=== PATIENT | male | born 1980 | race Caucasian/White ===

== ENCOUNTER 2019-05-19 11:49 | Emergency (ER) | payer SELFPAY ==
[2019-05-19 11:51] VITALS: BP 142/82; PULSE 107; RESP 16; TEMP 36.7; O2SAT 100
--- NOTE | 2019-05-19 12:56 | ED.EAR ---
HPI - Ear Problem General Chief complaint: Ear Stated complaint: ear ache Time Seen by Provider: 05/19/19 12:14 Source: patient Mode of arrival: ambulatory Limitations: no limitations History of Present Illness HPI Narrative: This is a 38 year old male that presents to the ER for bilateral ear discomfort. Reports he feels like he has fluid in his ears. Reports his right ear was hurting a couple days ago, but has no longer had any pain. Denies any drainage from the ears or fever. Related Data Allergies Allergy/AdvReac Type Severity Reaction Status Date / Time No Known Allergies Allergy Verified 05/19/19 11:56 Review of Systems Review of Systems: Narrative: CONSTITUTIONAL: Denies fever ENT: Reports otalgia. Denies rhinorrhea, congestion, sore throat RESPIRATORY: Denies cough or dyspnea. All systems reviewed & are unremarkable except as noted in HPI and below PMFSH Past Medical History Medical History (Updated 05/19/19 @ 13:02 by Kathleen Joyce PA-C) No active medical problems Social History Social History (Updated 05/19/19 @ 12:58 by Kathleen Joyce PA-C) Substance use: never Gender identity (if verbalized by the patient): Male Exam Narrative: Exam Narrative: GENERAL: Well-appearing, well-nourished, and in no acute distress. HEAD: Normocephalic, atraumatic. EYES: EOMI. ENT: Mucous membranes moist. Bilateral external auditory canals are normal. Bilateral TMs pearly portillo non-bulging NECK: Supple. No adenopathy or masses. EXTREMITIES: Normal range of motion. No edema. SKIN: Warm, dry, no rash. NEURO: No focal deficits. Alert and oriented x3. PSYCH: Normal mood and affect Course Vital Signs Vital signs: Vital Signs Temperature 98.0 F 05/19/19 11:51 Pulse Rate 107 H 05/19/19 11:51 Respiratory Rate 16 05/19/19 11:51 Blood Pressure 142/82 H 05/19/19 11:51 Pulse Oximetry 100 05/19/19 11:51 Temperature 98.0 F 05/19/19 11:51 Pulse Rate 107 H 05/19/19 11:51 Respiratory Rate 16 05/19/19 11:51 Blood Pressure 142/82 H 05/19/19 11:51 Pulse Oximetry 100 05/19/19 11:51 Medical Decision Making MDM Narrative Medical decision making narrative: Patient presents the emergency department for bilateral ear discomfort. He is afebrile and nontoxic-appearing. Bilateral external auditory canals are normal. TMs are without erythema or swelling and having normal light reflexes. Patient was updated on case findings. He is to follow-up with primary care doctor. He was given warnings to return to the ER Vital Signs Vital Signs: Vital Signs Temperature 98.0 F 05/19/19 11:51 Pulse Rate 107 H 05/19/19 11:51 Respiratory Rate 16 05/19/19 11:51 Blood Pressure 142/82 H 05/19/19 11:51 Pulse Oximetry 100 05/19/19 11:51 Temperature 98.0 F 05/19/19 11:51 Pulse Rate 107 H 05/19/19 11:51 Respiratory Rate 16 05/19/19 11:51 Blood Pressure 142/82 H 05/19/19 11:51 Pulse Oximetry 100 05/19/19 11:51 Critical Care Time Critical Care Time Critical Care Time: No Discharge Plan Discharge Clinical Impression: Ear congestion Qualifiers: Laterality: bilateral Qualified Code(s): H93.8X3 - Other specified disorders of ear, bilateral Patient Disposition: Home, Self-Care Condition: Stable Instructions: Earache (ED) Additional Instructions: Return to the emergency department if you experience fever, ear pain, redness and swelling of the ear, drainage from the ear, or any other symptoms that are concerning to you Take a Zyrtec daily. Nasal rinses daily. Tylenol or ibuprofen as needed for pain Follow-up with primary care doctor Follow-up/Referrals: PHYSICIAN,ARM MAKER [Primary Care Provider] - Darrin Smith MD [Physician] - 3 Days
[2019-05-19 13:23] VITALS: BP 132/80; PULSE 80; RESP 20; TEMP 36.7; O2SAT 99
== END 2019-05-19 13:24 | disposition home or self-care (01) ==
PROVIDERS: Emergency Provider Emergency Medicine
DX: H93.8X3 Other specified disorders of ear, bilateral (principal)
CPT/HCPCS: 99281

== ENCOUNTER 2019-10-16 19:18 | Emergency (ER) | payer SELFPAY ==
--- NOTE | ~2019-10-16 | XR_ITS ---
XR elbow RT min 3V DATE: 10/16/2019 21:36 INDICATION: Generalized right elbow pain, radiating to fingers. No injury. TECHNIQUE: 4 views COMPARISON: None FINDINGS: No fracture or dislocation or joint effusion. No periosteal reaction or bone destruction. IMPRESSION: Negative Reviewed, dictated and finalized at location A. IMPRESSION: Negative
[2019-10-16 19:26] VITALS: BP 125/79; PULSE 114; RESP 18; TEMP 36.1; O2SAT 99
--- NOTE | 2019-10-16 21:30 | ED.UPPEXIN ---
HPI - Extremity Injury (Upper) General Chief Complaint: Extremity Injury, Upper Stated Complaint: worsening elbow pain,seen [facility] ago Time Seen by Provider: 10/16/19 21:24 Source: patient Mode of arrival: ambulatory Limitations: no limitations History of Present Illness HPI narrative: This patient is a 38 year old male right hand dominant who presents for evaluation of right elbow pain for 2 week. HE states 2 weeks he was working when he developed pain to his right elbow. He reports he felt a pop so he went to [facility] for evaluation . He was diagnosed with tennis elbow and he was discharged with naproxen. He has not taken anything for pain in 2 days, and he states the naproxen didn't help his pain. His pain is worse with stretching his arm. complaint: injury to: right and elbow Onset (ago): week(s) (2) Handedness: right Place: work Related Data Home Medications Medication Instructions Recorded Confirmed No Home Medications 10/16/19 10/16/19 Allergies Allergy/AdvReac Type Severity Reaction Status Date / Time No Known Allergies Allergy Verified 10/16/19 21:29 Review of Systems Review of Systems: All systems reviewed & are unremarkable except as noted in HPI and below Constitutional: Constitutional: Denies chills and Denies fever(s) Musculoskeletal: Musculoskeletal: Reports arthralgias Neurologic: Denies focal weakness PMFSH Past Medical History Medical History (Updated 10/17/19 @ 06:26 by Sangeetha Ramos MD) No active medical problems Surgical History Surgical History (Updated 10/16/19 @ 21:34 by Sangeetha Ramos MD) H/O hand surgery Social History Social History (Updated 05/19/19 @ 12:58 by Kathleen Joyce PA-C) Substance use: never Gender identity (if verbalized by the patient): Male Exam Const: General: no acute distress and alert Orientation/consciousness: patient oriented x3 Eyes: EOM: EOMs intact bilaterally Resp: Effort & Inspection: normal respiratory effort Skin: General skin exam: normal color Rashes: no rashes Neuro: General: patient oriented x3 and moves all extremities Extrem: Other: right elbow with no swelling, no erythema. He is able to passively range at elbow with no restrictions. he does have pain. Psych: Mental Status: mental status grossly normal Affect: normal affect Course Reevaluation(s) Reevaluation #1: Nursing staff states patient refused toradol and he walked out before I could talk to him and discharge Date: 10/16/19 Time: 22:30 Vital Signs Vital signs: Vital Signs Temperature 97 F L 10/16/19 19:26 Pulse Rate 114 H 10/16/19 19:26 Respiratory Rate 18 10/16/19 19:26 Blood Pressure 125/79 10/16/19 19:26 Pulse Oximetry 99 10/16/19 19:26 Temperature 97 F L 10/16/19 19:26 Pulse Rate 114 H 10/16/19 19:26 Respiratory Rate 18 10/16/19 19:26 Blood Pressure 125/79 10/16/19 19:26 Pulse Oximetry 99 10/16/19 19:26 MDM - Extremity Injury (Upper) Imaging Data Radiologist's impression: ITS Impressions Elbow X-Ray 10/16/19 21:46 IMPRESSION: Negative Discharge Plan Discharge Clinical Impression: Elbow pain, right Patient Disposition: [facility] After Seen by Prov Condition: Stable Prescriptions: No Action No Home Medications RF: 0 Interventions: Discharge Disposition Last Done: 10/16/19 22:15 IV Stop Time Documented Last Done: 10/16/19 22:16 Follow-up/Referrals: PHYSICIAN,CARD TENDER [Primary Care Provider] - Discharge Date/Time: 10/16/19 22:16
== END 2019-10-16 22:16 | disposition left against medical advice (07) ==
PROVIDERS: Emergency Provider General Practice
DX: M25.521 Pain in right elbow (principal)
CPT/HCPCS: 73080; 99283; A4565; A9270

== ENCOUNTER 2021-05-01 20:32 | Emergency (ER) | payer OTHER, SELFPAY ==
[2021-05-01] VITALS (14 sets, daily range): BP systolic 114–139; BP diastolic 71–89; PULSE 85; RESP 17; TEMP 36.6; O2SAT 99–100
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
[2021-05-01] MEDS: MORPHINE SULFATE (*CRX) 4 MG/ML INJ IV PUSH (21:18)
[2021-05-01 21:24] LABS: Basophils Absolute Auto 0.1 K/mm3 (0.0-0.1); Basophils Percent Auto 1.6 % (0.2-1.2); Eosinophils Absolute Auto 0.4 K/mm3 (0-0.3); Eosinophils Percent Auto 5.9 % (0-4.4); Hematocrit 44.2 % (42.0-52.0); Hemoglobin 14.6 g/dL (14.0-18.0); Immature Granulocyte Absolute 0.01 K/mm3 (0.00-0.031); Immature Granulocyte Percent A 0.1 % (0-0.5); Lymphocytes Absolute Auto 2.02 K/mm3 (0.9-3.2); Lymphocytes Percent Auto 29.2 % (18.3-44.2); Mean Corpuscular Hemoglobin 31.3 pg (26-34); Mean Corpuscular Volume 94.8 fl (80-100); Mean Platelet Volume 9.6 fl (7.4-10.4); Monocytes Absolute Auto 0.8 K/mm3 (0.1-0.6); Monocytes Percent Auto 10.8 % (2.6-8.5); Neutrophils Absolute Auto 3.6 K/mm3 (1.3-6.7); Neutrophils Percent Auto 52.4 % (45.5-73.1); Platelet Count Result 282 k/mm3 (150-375); Red Blood Count 4.66 M/mm3 (4.6-6.20); Red Cell Distribution Width 13.2 % (11.5-14.5); White Blood Count 6.9 K/mm3 (4.5-10.0)
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
[2021-05-01 21:33] LABS: Anion Gap 3 mmol/L (8-16); Blood Urea Nitrogen 12 mg/dL (9-20); Calcium 8.4 mg/dL (8.4-10.2); Carbon Dioxide 28 mmol/L (22-30); Chloride 105 mmol/L (98-107); Estimated CRCL calculation 99 ml/min; Estimated Glomerular Filt Rate > 60; Glucose 98 mg/dL (65-110); Potassium 4.1 mmol/L (3.4-5.0); Sodium 136 mmol/L (137-145)
[2021-05-02] VITALS: O2SAT 100
[2021-05-02 00:15] VITALS: O2SAT 100
[2021-05-02 00:30] VITALS: O2SAT 100
[2021-05-02 00:43] VITALS: RESP 18
== END 2021-05-02 00:44 | disposition home or self-care (01) ==
PROVIDERS: Emergency Medicine; Emergency Provider Emergency Medicine
DX: S39.92XA Unspecified injury of lower back, initial encounter (principal); R07.9 Chest pain, unspecified; V43.62XA Car passenger injured in collision with other type car in traffic accident, initial encounter
CPT/HCPCS: 36415; 70450; 71260; 72125; 74177; 80048; 85025; 96374; 99284; J2270; Q9967